=== PATIENT | female | born 1985 | race African-American/Black ===

== ENCOUNTER 2018-02-06 08:04 | Emergency (ER) | payer OTHER ==
[~2018-02-06] VITALS: Ht 165.1 cm; Wt 73.9 kg
[~2018-02-06 08:04] MED LIST: AMOXICILLIN875 MG PO; CIPROFLOXACIN500 M1 PO; DIFLUCAN150 MG PO; FLAGYL500 MG PO; GLUCOPHAGE850 MG PO; HYDROCODONE-AC120 ML PO; IBUPROFEN 600600 M1 PO; NORCO 5-325 TA1 EACH PO; VALIUM2 MG PO; VITAMIN D400 UNI1
[2018-02-06 08:06] VITALS: BP 152/97
[2018-02-06 08:21] LABS: URINE BILIRUBIN NEGATIVE (Negative); URINE BLOOD 3+ (Negative); URINE CLARITY SL CLOUDY; URINE COLOR YELLOW; URINE GLUCOSE-RANDOM* 3+ (Negative); URINE KETONES NEGATIVE (Negative); URINE NITRITE-REFLEX NEGATIVE (Negative); URINE PROTEIN (DIPSTICK) 2+ (Negative); URINE SPECIFIC GRAVITY 1.025 (1.005-1.035); URINE UROBILINOGEN 0.2 E.U./dl (0.2-1.0)
[2018-02-06 08:26] LABS: URINE LEUKOCYTES-REFLEX TRACE (Negative)
[2018-02-06 08:29] LABS: CASTS None Seen /LPF (None Seen); CRYSTALS None Seen /LPF (None Seen); SQUAMOUS 0-3 Few /LPF (0-3); URINE RBC >20 Many /HPF (0-2)
[2018-02-06 08:30] LABS: BACTERIA-REFLEX 1-9 Few /HPF (None Seen); URINE WBC-REFLEX 0-5 Rare /HPF (0-5); YEAST-REFLEX Present (None Seen)
[2018-02-06] MEDS ORDERED: DIFLUCAN150 MG PO (08:34)
[2018-02-06] MEDS ORDERED: KEFLEX500 M1 PO (08:34)
== END 2018-02-06 08:39 | disposition home or self-care (01) ==
LOC: ER 08:04
PROVIDERS: Emergency Medicine
DX: N39.0 Urinary tract infection, site not specified (principal); E11.9 Type 2 diabetes mellitus without complications; I10 Essential (primary) hypertension

== ENCOUNTER 2021-05-15 10:03 | Emergency (ER) | payer BC ==
[~2021-05-15] VITALS: Ht 165.1 cm; Wt 77.1 kg
[~2021-05-15 10:03] MED LIST changes: +KEFLEX500 M1 PO
[2021-05-15 10:04] VITALS: BP 150/97
[2021-05-17] MEDS ORDERED: AMOXICILLIN875 MG PO (13:33)
== END 2021-05-15 11:23 | disposition home or self-care (01) ==
LOC: ER 10:03
PROVIDERS: Student in an Organized Health Care Education/Training Program
DX: B34.9 Viral infection, unspecified (principal); Z20.822 Contact with and (suspected) exposure to COVID-19; E11.9 Type 2 diabetes mellitus without complications; I10 Essential (primary) hypertension; Z98.890 Other specified postprocedural states; Z79.891 Long term (current) use of opiate analgesic; Z79.899 Other long term (current) drug therapy; Z79.84 Long term (current) use of oral hypoglycemic drugs